=== PATIENT | female | born 1975 | race Hispanic/Latino ===

== ENCOUNTER 2017-10-29 08:12 | Emergency (ER) | payer MEDICAID, OTHER ==
[2017-10-29 08:28] VITALS: BMI 30.1
[2017-10-29 09:09] LABS: BASO # 0.12 K/mm3 (0.0-2.0); BASO % 1.5 % (0.0-3.0); EOS # 1.1 (0.0-0.7); EOS % 13.2 % (1.5-5.0); GRAN # 4.52 (1.4-6.5); HEMOGLOBIN 12.1 g/dL (12.0-16.0); LYMPH % 24.6 % (22.0-35.0); MEAN CELL VOLUME 87.3 fl (80.0-105.0); MEAN CORPUSCULAR HEMOGLOBIN 28.5 pg (25.0-35.0); MEAN CORPUSCULAR HGB CONC 32.6 g/dl (31.0-37.0); MEAN PLATELET VOLUME 10.2 fl (7.0-11.0); MONO # 0.5 (0.1-0.6); MONO % 5.7 % (1.0-6.0); RBC 4.25 10^6/uL (3.5-6.1); RED CELL DISTRIBUTION WIDTH 14.5 % (11.5-14.5); WHITE BLOOD COUNT 8.2 10^3/ul (4.5-11.0)
[2017-10-29] MEDS ORDERED: Sodium Chloride 0.9% 1,000 ML IV STA (09:12)
[2017-10-29 09:17] LABS: INR 1.09; PARTIAL THROMBOPLASTIN TIME 28.9 Seconds (25.1-36.5); PROTHROMBIN TIME 12.6 SECONDS (9.4-12.5)
--- NOTE | 2017-10-29 09:17 | ED PDOC ---
Arrival/HPI - General Chief Complaint: Chest Pain Time Seen by Provider: 10/29/17 09:03 Historian: Patient - History of Present Illness Narrative History of Present Illness (Text): 10/29/17 09:13 42 y/o female, pmh including asthma/eczema, allergic to aspirin (not other nsaids)/keflex/penicillin, c/o rt. posterior shoulder blade pain from sleeping that the pain started yesterday (over 18 hours ago). Pt. stated that she was sleeping yesterday on the rt. side of the neck/shoulder, woke up with rt. posterior shoulder blade/neck pain, aggravated by movement, no fall or trauma, no numbness or tingling, no night sweat, no palpitation, no dizziness, no change in vision, no tearing pain, no headache or neck pain, no other medical or psychological complaints. Pt. stated that she disagreed with the triage that she doesn't have any chest pain or painful urination (I reviewed the nursing note, disagreed with history modified in this HPI). Past Medical History - Provider Review Nursing Documentation Reviewed: Yes - Past History Past History: No Previous - Infectious Disease Hx of Infectious Diseases: None - Tetanus Immunization Tetanus Immunization: Unknown - Cardiac Hx Cardiac Disorders: No - Pulmonary Hx Asthma: Yes - Neurological Hx Neurological Disorder: Yes - HEENT Hx HEENT Disorder: No - Renal Hx Renal Disorder: No - Endocrine/Metabolic Hx Endocrine Disorders: No - Hematological/Oncological Other/Comment: hyper ieg syndrome,. IEG syndrome - Integumentary Hx Eczema: Yes Other/Comment: Nickel Dermatitis - Musculoskeletal/Rheumatological Hx Musculoskeletal Disorders: No - Gastrointestinal Hx Gastrointestinal Disorders: No - Genitourinary/Gynecological Hx Genitourinary Disorders: No - Psychiatric Hx Psychophysiologic Disorder: No Hx Substance Use: No - Past Surgical History Past Surgical History: No Previous - Anesthesia Hx Anesthesia: No Hx Anesthesia Reactions: No Hx Malignant Hyperthermia: No - Suicidal Assessment Feels Threatened In Home Enviroment: No Family/Social History - Physician Review Nursing Documentation Reviewed: Yes Family/Social History: Unknown Family HX Smoking Status: Never Smoked Hx Alcohol Use: Yes Hx Substance Use: No Hx Substance Use Treatment: No Allergies/Home Meds Allergies/Adverse Reactions: Allergies EGG Allergy (Mild, Verified 10/29/17 08:26) NAUSEA aspirin Allergy (Verified 10/29/17 08:25) RASH cephalexin Allergy (Verified 10/29/17 08:26) RASH egg Allergy (Verified 10/29/17 08:25) NAUSEA Penicillins Allergy (Verified 10/29/17 08:29) SWELLING dairy product Allergy (Uncoded 10/29/17 08:29) SWELLING Metal Allergy (Uncoded 01/07/15 18:45) RASH [place] Allergy (Uncoded 10/29/17 08:25) RASH peanuts Allergy (Uncoded 10/29/17 08:24) SWELLING Home Medications: Home Meds Medication Instructions Recorded Confirmed Montelukast Sodium [Singulair] 10 mg PO HS 12/22/11 10/29/17 RX: Loratadine 10 mg PO DAILY 12/22/11 10/29/17 RX: Albuterol 0.5% [Albuterol 0.5% 3 ml IH PRN PRN 04/10/14 10/29/17 Inhal Rose Marie (2.5 mg/0.5 ml) UD] Review of Systems - Review of Systems Constitutional: absent: Fatigue, Fevers Eyes: absent: Vision Changes ENT: absent: Hearing Changes Respiratory: absent: SOB, Cough Cardiovascular: absent: Chest Pain Gastrointestinal: absent: Abdominal Pain, Nausea, Vomiting Musculoskeletal: Neck Pain, Myalgias. absent: Arthralgias, Back Pain, Joint Swelling Skin: absent: Rash, Pruritis Neurological: absent: Headache, Dizziness Psychiatric: absent: Anxiety, Depression, Suicidal Ideation Physical Exam Vital Signs Reviewed: Yes Vital Signs Temp Pulse Resp BP Pulse Ox 10/29/17 11:36 98.0 F 98 H 17 113/68 100 10/29/17 08:12 98.9 F 78 20 143/64 99 Temperature: Afebrile Blood Pressure: Normal Pulse: Regular Respiratory Rate: Normal Appearance: Positive for: Well-Appearing, Non-Toxic, Comfortable Pain Distress: Moderate Mental Status: Positive for: Alert and Oriented X 3 - Systems Exam Head: Present: Atraumatic, Normocephalic Pupils: Present: PERRL Extroacular Muscles: Present: EOMI Conjunctiva: Present: Normal Ears: Present: NORMAL TM, Normal Canal. No: Erythema Mouth: Present: Moist Mucous Membranes Pharnyx: Present: Normal. No: ERYTHEMA, EXUDATE, TONSILS ENLARGED Nose (External): Present: Atraumatic. No: Abrasion, Contusion, Laceration Nose (Internal): Present: Normal Inspection, No Active Bleeding. No: Rhinorrhea , Septal Hematoma, Epistaxis Neck: Present: Normal Range of Motion, Paraspinal Tenderness (+rt. trapezius muscle tenderness with spasm noted, pain 100% reproducible by palpating on the rt. trapezius muscle region, no visible vesicular or erythematous lesion that consist of cellulitis/shingles. ), Trachea Midline. No: Meningeal Signs, MIDLINE TENDERNESS, Lymphadenopathy Respiratory/Chest: Present: Clear to Auscultation, Good Air Exchange. No: Respiratory Distress, Accessory Muscle Use Cardiovascular: Present: Regular Rate and Rhythm, Normal S1, S2. No: Murmurs Abdomen: No: Tenderness, Distention, Peritoneal Signs, Rebound, Guarding Back: Present: Normal Inspection. No: CVA Tenderness, Midline Tenderness, Paraspinal Tenderness, Pain with Leg Raise, Decubitus Ulcer Upper Extremity: Present: Normal Inspection, Normal ROM, NORMAL PULSES, Neurovascularly Intact, Capillary Refill < 2s. No: Cyanosis, Edema, Deformity Lower Extremity: Present: Normal Inspection, NORMAL PULSES, Normal ROM, Capillary Refill < 2 s. No: Edema, Deformity Neurological: Present: GCS=15, CN II-XII Intact, Speech Normal, Motor Func Grossly Intact, Gait Normal, Memory Normal Skin: Present: Warm, Dry, Normal Color. No: Rashes Psychiatric: Present: Alert, Oriented x 3, Normal Insight, Normal Concentration Medical Decision Making ED Course and Treatment: 10/29/17 09:18 -Labs/ua -EKG -CXR -IVF/toradol/valium -Observe and reassess 10/29/17 11:09 -Urine hcg is negative -EKG: SR @ 78 BPM, no ST elevation or depression, no T wave inversion. -Chest xray: show no active disease -Labs show no acute findings -Trop is negative, clinically this is muscular skeletal pain, error on the triage -UA show mild UTI -Pt. feels well now with pain is 100% reproducible, relief with medication given in the ER, moving and walking around, no cardiopulmonary or neurological complaints -HEART score is 1 -PERC is negative, zero -All labs and radiology results discussed with the patient, offer for further evaluation and observation but she declined, request to go home. -Discharge home with macrobid, motrin, flexeril, lidoderm, avoid using rt. shoulder if possible especially carrying/lifting, follow up within 2 days, return to the ER for any new or worsening signs or symptoms. - Lab Interpretations Lab Results: 10/29/17 09:04 10/29/17 09:04 Lab Results 10/29/17 09:04: Sodium 142, Potassium 4.6, Chloride 108 H, Carbon Dioxide 24, Anion Gap 13, BUN 12, Creatinine 0.9, Est GFR ( Amer) > 60, Est GFR (Non- Af Amer) > 60, Random Glucose 95, Calcium 8.9, Total Bilirubin 0.3, AST 18, ALT 22, Alkaline Phosphatase 62, Lactate Dehydrogenase 362, Total Creatine Kinase 49 , Troponin I < 0.01, Total Protein 7.6, Albumin 4.1, Globulin 3.5, Albumin/ Globulin Ratio 1.2 10/29/17 09:04: PT 12.6 H, INR 1.09, APTT 28.9 10/29/17 09:04: WBC 8.2, RBC 4.25, Hgb 12.1, Hct 37.1, MCV 87.3, MCH 28.5, MCHC 32.6, RDW 14.5, Plt Count 278, MPV 10.2, Gran % 55.0, Lymph % (Auto) 24.6, Adams % (Auto) 5.7, Eos % (Auto) 13.2 H, Baso % (Auto) 1.5, Gran # 4.52, Lymph # (Auto ) 2.0, Adams # (Auto) 0.5, Eos # (Auto) 1.1 H, Baso # (Auto) 0.12 10/29/17 07:00: Urine Color Yellow, Urine Appearance Clear, Urine pH 6.0, Ur Specific Savage 1.025, Urine Protein Negative, Urine Glucose (UA) Negative, Urine Ketones Negative, Urine Blood Negative, Urine Nitrate Negative, Urine Bilirubin Negative, Urine Urobilinogen 0.2, Ur Leukocyte Esterase Trace H, Urine RBC 0 - 2, Urine WBC 2 - 5, Ur Epithelial Cells 6 - 8, Urine Bacteria Many - RAD Interpretation Radiology Orders: 10/29/17 09:13 CHEST PORTABLE [RAD] Stat HISTORY: medical clearance COMPARISON: 01/07/2015 FINDINGS: LUNGS: No active pulmonary disease. PLEURA: No significant pleural effusion identified, no pneumothorax apparent. CARDIOVASCULAR: Normal. OSSEOUS STRUCTURES: No significant abnormalities. VISUALIZED UPPER ABDOMEN: Normal. OTHER FINDINGS: None. IMPRESSION: No active disease. 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 - Medication Orders Current Medication Orders: Discontinued Medications Diazepam (Valium) 10 mg PO ONCE ONE PRN Reason: Protocol Stop: 10/29/17 09:13 Last Admin: 10/29/17 09:25 Dose: 10 mg Sodium Chloride (Sodium Chloride 0.9%) 1,000 mls @ 999 mls/hr IV .Q1H1M STA Stop: 10/29/17 10:12 Last Admin: 10/29/17 09:26 Dose: 999 mls/hr eMAR Start Stop Document 10/29/17 09:26 [facility] (Rec[facility] 10/29/17 09:27 [id number] Intravenous Solution Start Date 10/29/17 Start Time 09:26 End Date 10/29/17 End time 10:30 Total Infusion Time 64 Ketorolac Tromethamine (Toradol) 30 mg IVP STAT STA Stop: 10/29/17 09:13 Last Admin: 10/29/17 09:26 Dose: 30 mg MAR Pain Assessment Document 10/29/17 09:26 [facility] (Rec: 10/29/17 09:26 [id number] Pain Reassessment Is this a pain reassessment? Yes Sleep Is patient sleeping during reassessment? 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 Disposition/Present on Arrival - Present on Arrival Any Indicators Present on Arrival: No History of DVT/PE: No History of Uncontrolled Diabetes: No Urinary Catheter: No History of Decub. Ulcer: No History Surgical Site Infection Following: None - Disposition Have Diagnosis and Disposition been Completed?: Yes Diagnosis: Trapezius muscle spasm, UTI (urinary tract infection) Disposition: HOME/ ROUTINE Disposition Time: 11:11 Patient Plan: Discharge Condition: IMPROVED Additional Instructions: -Discharge home with macrobid, motrin, flexeril, lidoderm, avoid using rt. shoulder if possible especially carrying/lifting, follow up within 2 days, return to the ER for any new or worsening signs or symptoms. Prescriptions: Cyclobenzaprine [Cyclobenzaprine HCl] 10 mg PO TID PRN #21 tab PRN Reason: Other RX: Ibuprofen [Motrin Tab] 600 mg PO QID PRN #30 tab PRN Reason: Other Lidocaine 5% [Lidoderm] 1 patch TOP DAILY PRN #14 patch PRN Reason: Other Nitrofurantoin Macrocrystals [Macrobid] 100 mg PO BID #14 cap Referrals: Elier Woodward III, MD [Medical Doctor] - [place] up [place] [facility] [place] - Follow up with primary Forms: [employer] ([place]ian), WORK NOTE
[2017-10-29 09:24] LABS: ALB/GLOB RATIO 1.2 (1.1-1.8); ALBUMIN 4.1 g/dL (3.0-4.8); ALT/SGPT 22 U/L (7-56); AST/SGOT 18 U/L (14-36); BLOOD UREA NITROGEN 12 mg/dL (7-21); CALCIUM 8.9 mg/dL (8.4-10.5); GFR NON-AFRICAN AMERICAN > 60
[2017-10-29 09:30] LABS: TROPONIN I < 0.01 ng/mL
[2017-10-29 09:52] LABS: URINE BILIRUBIN NEGATIVE (NEGATIVE); URINE BLOOD NEGATIVE (NEGATIVE); URINE GLUCOSE (UA) NEGATIVE (NEGATIVE); URINE LEUKOCYTE ESTERASE TRACE Leu/uL (NEGATIVE); URINE PROTEIN NEGATIVE mg/dL (<30 mg/dL); URINE UROBILINOGEN 0.2 E.U./dL (<1 E.U./dL)
[2017-10-29 10:04] LABS: URINE APPEARANCE CLEAR (CLEAR); URINE COLOR YELLOW (YELLOW)
[2017-10-29 10:12] LABS: URINE RBC 0 - 2 /hpf (0-2)
[2017-10-29 10:13] LABS: URINE BACTERIA MANY (NEG)
[2017-10-29] MEDS ORDERED: Lidocaine 5% Patch TD STA (11:07)
[2017-10-29 11:37] VITALS: BP 113/68; PULSE 98; RESP 17; TEMP 98; O2SAT 100
--- NOTE | 2017-10-29 12:34 | RAD ---
Date of service: 10/29/2017 HISTORY: medical clearance COMPARISON: 01/07/2015 FINDINGS: LUNGS: No active pulmonary disease. PLEURA: No significant pleural effusion identified, no pneumothorax apparent. CARDIOVASCULAR: Normal. OSSEOUS STRUCTURES: No significant abnormalities. VISUALIZED UPPER ABDOMEN: Normal. OTHER FINDINGS: None. IMPRESSION: No active disease.
--- NOTE | 2017-10-29 13:59 | CARD ---
APPROVED REPORT Date of service: 10/29/2017 EKG Measurement Heart [id number] <Conclusion> Sinus rhythm with fusion complexes Otherwise normal ECG
== END 2017-10-29 11:38 | disposition home or self-care (01) ==
LOC: ED 08:12
DX: N39.0 Urinary tract infection, site not specified (principal); M62.838 Other muscle spasm
CPT/HCPCS: 71045; 80053; 81001; 82550; 83615; 83735; 84484; 85025; 85610; 85730; 87086; 93005; 96361; 96374; 99283; J1885; J7030